=== PATIENT | male | born 1990 | race Caucasian/White ===

== ENCOUNTER 2020-07-28 17:43 | Emergency (ER) | payer OTHER | END 2020-07-29 00:19 | disposition home or self-care (01) | LOC: ER1 17:43 | DX: S62.636A Displaced fracture of distal phalanx of right little finger, initial encounter for closed fracture (principal); W23.0XXA Caught, crushed, jammed, or pinched between moving objects, initial encounter | CPT/HCPCS: 73130; 90715; 99283 ==